=== PATIENT | male | born 1940 | race Caucasian/White ===

== ENCOUNTER 2016-05-23 17:58 | Emergency (ER) | payer MEDICARE ==
[~2016-05-23] VITALS: Ht 170.2 cm; Wt 115.0 kg
[~2016-05-23 17:58] MED LIST: ADVA100A INH; ALBU8I INH; ALLO100T PO; OCUV PO; PROS5TAB2 PO; SYNT25TA PO; WARF2.5T40 PO; WARF5TAB PO
[2016-05-23 18:02] VITALS: BP 139/88; PULSE 84; RESP 16; TEMP 97.6; O2SAT 97
--- NOTE | 2016-05-23 19:40 | PD ---
HPI Chief Complaint: Laceration/Skin Injury Time Seen by Provider: 19:40 Travel History International Travel<30 days: No Contact w/Intl Traveler<30days: No Traveled to known affect area: No History of Present Illness HPI Patient is a 76-year-old male presenting with skin injury to right lower extremity. Approximately 2 hours prior to exam he was cutting bushes when one of the branches tore the skin. He thinks it penetrated superficially. Bleeding was minimal, hemostasis achieved with pressure. 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 He denies any weakness, paresthesia or foreign body sensation. He denies history of CAD, peripheral vascular disease, diabetes and immunocompromised states. Last tetanus vaccine greater than 5 years. 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) Immunizations Current: Yes Sleep Apnea: Yes Thyroid Disease: Yes Tetanus Vaccination: > 5 Years Influenza Vaccination: Yes Past Surgical History Eye Surgery: Yes (RIGHT CATARACT SX) Pacemaker: No Tonsillectomy: Yes Other Surgery: Yes Social History Alcohol Use: Yes ("OCCASIONALLY") Tobacco Use: No Substance Use: No Allergies-Medications (Allergen,Severity, Reaction): Coded Allergies: No Known Allergies (Verified , 05/23/16) Reported Meds & Prescriptions Reported Meds & Active Scripts Active Cephalexin 500 Mg Tab 500 Mg PO Q6H Bactrim DS (Sulfamethoxazole-Trimethoprim) 800-160 Mg Tab 1 Tab PO BID Reported Ventolin Hfa (Albuterol Sulfate) 8 Gm Aero 1 Puff INH ONCE * SHAKE WELL BEFORE USE * Ocuvite 1 Tab1 Tab 1 Tab Tab 1 Tab PO DAILY Allopurinol 100 Mg Tab 100 Mg PO DAILY Warfarin Sodium 5 Mg Tab 5 Mg PO DIRECTED 5 MG Tuesday SAT TUESDAY Warfarin Sodium 2.5 mg (Warfarin Sodium) 2.5 Mg Tab 2.5 Mg PO DIRECTED 2.5 MG Tuesday Synthroid (Levothyroxine Sodium) 25 Mcg Tab 50 Mcg PO DAILY Advair Diskus 100/50 (Salmeterol Xinafoate/Fluticasone) 100 Mcg/50 Mcg Inhp 1 Puff INH BIDPRN PT STATES HE USES VERY RARELY Proscar (Finasteride) 5 Mg Tab 5 Mg PO DAILY Review of Systems General / Constitutional: No: Fever Cardiovascular: Positive: Edema (chronic bilateral lower extremity no acute worsening), No: Chest Pain or Discomfort, Claudication Respiratory: No: Shortness of Breath Musculoskeletal: No: Limited ROM Skin: Positive Other (see the history of present illness) Neurologic: No: Weakness, Focal Abnormalities, Paresthesia, Sensory Disturbance Physical Exam Narrative GENERAL: Well-developed and well-nourished adult male in no acute distress. SKIN: Warm and dry. Good turgor without tenting. HEAD: Normocephalic and atraumatic. NECK: Supple, no midline tenderness, crepitus or step-offs. Trachea midline, no JVD. No cervical or facial lymphadenopathy. CARDIOVASCULAR: Regular rate and rhythm without murmurs, rubs, clicks or gallops. Dorsalis pedis and posterior tibial pulses 2+ bilaterally. Trace bilateral pedal edema, chronic per patient. Negative bilateral Homans sign. RESPIRATORY: Clear to auscultation bilaterally with symmetrical rise and fall, no distress or use of accessory muscles. MUSCULOSKELETAL: There is a 2 x 1 cm skin avulsion to the right medial calf. Severity states that is visible without any deep structures visible. No contaminants or foreign bodies. Hemostasis is achieved. Very minimal surrounding ecchymosis without edema or erythema. No tenderness to palpation. No gait disturbances. Patient freely moving all four extremities spontaneously. Extremities without clubbing, cyanosis, or edema. No obvious deformities. NEUROLOGIC: CN II-XII grossly intact. Awake and alert. Strength 5/5 bilateral plantar flexion and dorsiflexion. Patient can freely move all 5 toes of right foot. Sensation intact to the distal tip of all 5 toes of right foot. Normal speech. PSYCHIATRIC: Appropriate mood and affect; insight and judgment normal. Data Data Last Documented VS Vital Signs Date Time Temp Pulse Resp B/P Pulse Ox O2 Delivery O2 Flow Rate FiO2 05/23/16 18:02 97.6 84 16 139/88 97 Orders Tetanus/Diphtheria Tox Adult (Tetanus/Di (05/23/16 19:45) Lidocai-Epi 1%-1:100,000 Inj (Xylocaine- (05/23/16 19:45) Tibia/Fibula (Ap/Lat) (05/23/16 19:37) Ice/Cold Pack (05/23/16 19:37) Sulfamet-Trimeth Ds 800-160 Mg (Bactrim (05/23/16 21:30) Cephalexin (Keflex) (05/23/16 21:30) MDM Medical Decision Making Medical Screen Exam Complete: Yes Emergency Medical Condition: Yes Differential Diagnosis Skin tear versus laceration versus puncture wound versus wound foreign body Narrative Course Patient is a 68-year-old male on aspirin 325 mg daily presenting with puncture wound and minor skin tear to the right lower extremity. Hemostasis achieved with pressure. He is neurovascularly intact. There is no edema or visible contaminants. Tetanus vaccine is updated. Ordered x-ray which shows no significant tissue defect, foreign body or air. Anesthetized the size cleansed and repaired wound per attached procedure narrative. The wound was only closely approximated as this was more of a skin avulsion. Additionally there were small amount of debris in the wound so this would be preferred to close by secondary intention. Sterile dressing was applied and patient was recommended to change this once daily and follow-up with PCP tomorrow. Will likely need wound care referral.See discharge paperwork for further instructions. The plan was discussed with the patient who acknowledged their understanding and agreement. Reinforced the follow-up with primary care is critically important. Patient instructed on emergent conditions that should prompt return to ED. Procedures Procedure Narrative Skin avulsion LOCATION: Right pretibial surface LENGTH: 2 x 1 cm SHAPE: Ovoid NUMBER OF STITCHES/ALESSANDRO: 3 simple round REPAIR: The area of the laceration was prepped with Betadine and sterilely draped. The laceration was infiltrated with 4 cc of 1% lidocaine with epi. The wound was copiously irrigated and explored revealing that it is shallow. There is no deep structures visible and no evidence of tendon or neurovascular injury. Very minimal leaf-like debris at the very outer edges of the wound which was removed with forceps and irrigated out. Irrigated with 700 cc of sterile saline under light pressure. The wound was closed using loosely approximated with 3-0 Ethilon. This was a single layer repair. A sterile dressing was applied. The patient was advised to keep the dressing clean and dry. Patient tolerated the procedure well. Diagnosis Primary Impression: Avulsion of soft tissue of right lower leg Qualified Code: S81.801A - Avulsion of soft tissue of right lower leg, initial encounter Patient Instructions: General Instructions, Laceration Without Closure (ED) Additional Instructions: Keep bandage on for 24 hours then change twice daily When changing bandage wash area with soap and water Avoid swimming or submerging wound in any water(bath, [place], pool, ocean, etc) Take Tylenol as needed for pain Follow-up with PCP tomorrow, sutures likely will be removed in 10-14 days Return to the ED for any acute worsening of symptoms including swelling, warmth , spreading redness, pustular drainage, fever Med/Other Pt SpecificInfo: Prescription(s) given Scripts Cephalexin 500 Mg [id number] Mg PO Q6H #40 TAB Prov:Anurag Koenig MD 05/23/16 Sulfamethoxazole-Trimethoprim (Bactrim DS)800-160 Mg Tab1 Tab PO BID #20 TAB Prov:Anurag Koenig MD 05/23/16 Disposition: 01 DISCHARGE HOME Condition: Stable Bud Diana III May 23, 2016 19:40
[2016-05-23] MEDS ORDERED: LIDOCAINE 1%/EPINEPHrine 1:100,000 SOLN 20 ML VIAL INFIL ONE (19:45)
[2016-05-23] MEDS ORDERED: TETANUS/DIPHTHERIA TOXOID ADULT 0.5 ML VIAL IM ONE (19:45)
--- NOTE | 2016-05-23 21:27 | RADHPO ---
EXAM DATE/TIME: 05/23/2016 20:15 [facility] COMPARISON: No previous studies available for comparison. INDICATIONS : Right mid-shaft tibia pain / puncture wound from a stick. MEDICAL HISTORY : None. SURGICAL HISTORY : Total knee replacement, right. ENCOUNTER: Initial ACUITY: 1 day PAIN SCORE: 0/10 LOCATION: Right lower leg FINDINGS: Previous right knee replacement noted. No acute fracture or dislocation in the tibia. CONCLUSION: 1. No acute findings. Gordon Francisco MD on May 23, 2016 at 21:24 Board Certified Radiologist. This report was verified electronically.
[2016-05-23] MEDS ORDERED: CEPH500T PO (21:28)
[2016-05-23] MEDS ORDERED: BACT800T5 PO (21:28)
[2016-05-23] MEDS ORDERED: CEPHALEXIN MONOHYDRATE 500 MG CAP PO ONE (21:30)
[2016-05-23] MEDS ORDERED: SULFAMETHOXAZOLE-TRIMETHOPRIM DS 800-160 MG TAB PO ONE (21:30)
== END 2016-05-23 21:53 | disposition home or self-care (01) ==
LOC: PHED 17:58 → PHEFT 21:53
DX: S81.801A Unspecified open wound, right lower leg, initial encounter (principal); J45.909 Unspecified asthma, uncomplicated; E07.9 Disorder of thyroid, unspecified; G47.30 Sleep apnea, unspecified; Z79.82 Long term (current) use of aspirin; Z86.711 Personal history of pulmonary embolism; Z86.718 Personal history of other venous thrombosis and embolism; Z23 Encounter for immunization
CPT/HCPCS: 12001; 73590; 90471; 90714

== ENCOUNTER → 2016-07-28 | Outpatient (CLI) | payer MEDICARE ==
[~2016-07-28] MED LIST changes: +BACT800T5 PO; +CEPH500T PO
[2016-07-28 13:04] LABS: HEMATOCRIT 43.6 % (39.0-51.0); MEAN CELL VOLUME 98.8 FL (80.0-100.0); MEAN CORPUSCULAR HEMOGLOBIN 32.9 PG (27.0-34.0); MEAN CORPUSCULAR HGB CONC 33.3 % (32.0-36.0); PLATELET COUNT 203 TH/MM3 (150-450); RED BLOOD COUNT 4.41 MIL/MM3 (4.50-5.90); REVIEW FLAG FINAL; WHITE BLOOD COUNT 6.5 TH/MM3 (4.0-11.0)
[2016-07-28 13:26] LABS: ALKALINE PHOSPHATASE 53 U/L (45-117); ALT (GPT) 29 U/L (12-78); ANION GAP 8 MEQ/L (5-15); AST (GOT) 22 U/L (15-37); BICARBONATE 29.1 MEQ/L (21.0-32.0); BLOOD UREA NITROGEN 12 MG/DL (7-18); CHLORIDE 106 MEQ/L (98-107); GLOMERULAR FILTRATION RATE 63 ML/MIN (>89); GLUCOSE,FASTING 93 MG/DL (74-99); SODIUM (NA) 143 MEQ/L (136-145); TOTAL BILIRUBIN ADULT 0.7 MG/DL (0.2-1.0)
== END ==
LOC: PLAB 09:25
PROVIDERS: ATTEND Internal Medicine Interventional Cardiology
DX: I48.1 Persistent atrial fibrillation (principal); R42 Dizziness and giddiness; R03.0 Elevated blood-pressure reading, without diagnosis of hypertension; R53.83 Other fatigue; R06.02 Shortness of breath
CPT/HCPCS: 36415; 80053; 84443; 85027

== ENCOUNTER → 2016-08-16 | Outpatient (CLI) | payer MEDICARE ==
[2016-08-16 13:39] LABS: ALKALINE PHOSPHATASE 53 U/L (45-117); ALT (GPT) 29 U/L (12-78); ANION GAP 7 MEQ/L (5-15); AST (GOT) 20 U/L (15-37); BICARBONATE 29.9 MEQ/L (21.0-32.0); BLOOD UREA NITROGEN 12 MG/DL (7-18); CHLORIDE 106 MEQ/L (98-107); FREE T4 1.02 NG/DL (0.76-1.46); GLOMERULAR FILTRATION RATE 63 ML/MIN (>89); GLUCOSE,FASTING 85 MG/DL (74-99); HDL CHOLESTEROL 40.6 MG/DL (40.0-60.0); LDL CHOLESTEROL 129 MG/DL (0-99); POTASSIUM 4.1 MEQ/L (3.5-5.1); SODIUM (NA) 143 MEQ/L (136-145); TOTAL BILIRUBIN ADULT 0.7 MG/DL (0.2-1.0); URIC ACID 6.2 MG/DL (2.6-7.2)
== END ==
LOC: PLAB 10:49
PROVIDERS: ATTEND Internal Medicine Interventional Cardiology
DX: E78.00 Pure hypercholesterolemia, unspecified (principal); E78.2 Mixed hyperlipidemia; M10.9 Gout, unspecified; E03.9 Hypothyroidism, unspecified
CPT/HCPCS: 36415; 80053; 80061; 84439; 84443; 84550

== ENCOUNTER → 2016-08-20 | Outpatient (CLI) | payer MEDICARE ==
[2016-08-20 11:49] LABS: HEMATOCRIT 44.2 % (39.0-51.0); MEAN CELL VOLUME 98.7 FL (80.0-100.0); MEAN CORPUSCULAR HEMOGLOBIN 33.6 PG (27.0-34.0); MEAN CORPUSCULAR HGB CONC 34.1 % (32.0-36.0); PLATELET COUNT 213 TH/MM3 (150-450); RED BLOOD COUNT 4.48 MIL/MM3 (4.50-5.90); RED CELL DISTRIBUTION WIDTH 14.8 % (11.6-17.2); REVIEW FLAG FINAL; WHITE BLOOD COUNT 5.8 TH/MM3 (4.0-11.0)
== END ==
LOC: CLAB 11:32
PROVIDERS: ATTEND Family Medicine
DX: R10.13 Epigastric pain (principal)
CPT/HCPCS: 36415; 85027

== ENCOUNTER → 2017-01-11 | Outpatient (CLI) | payer MEDICARE ==
[2017-01-11 12:49] LABS: MEAN CELL VOLUME 99.6 FL (80.0-100.0); MEAN CORPUSCULAR HEMOGLOBIN 33.2 PG (27.0-34.0); MEAN CORPUSCULAR HGB CONC 33.3 % (32.0-36.0); PLATELET COUNT 192 TH/MM3 (150-450); RED BLOOD COUNT 4.41 MIL/MM3 (4.50-5.90); RED CELL DISTRIBUTION WIDTH 15.7 % (11.6-17.2); REVIEW FLAG FINAL; WHITE BLOOD COUNT 4.6 TH/MM3 (4.0-11.0)
[2017-01-11 13:13] LABS: ANION GAP 7 MEQ/L (5-15); AST (GOT) 22 U/L (15-37); BICARBONATE 27.8 MEQ/L (21.0-32.0); BLOOD UREA NITROGEN 13 MG/DL (7-18); CHLORIDE 106 MEQ/L (98-107); GLOMERULAR FILTRATION RATE 77 ML/MIN (>89); GLUCOSE,FASTING 87 MG/DL (74-99); POTASSIUM 3.9 MEQ/L (3.5-5.1); SODIUM (NA) 141 MEQ/L (136-145)
[2017-01-11 13:14] LABS: ALT (GPT) 32 U/L (12-78)
[2017-01-11 13:16] LABS: ALKALINE PHOSPHATASE 57 U/L (45-117); TOTAL BILIRUBIN ADULT 0.4 MG/DL (0.2-1.0)
== END ==
LOC: CLAB 12:22
PROVIDERS: ATTEND Family Medicine
DX: R10.9 Unspecified abdominal pain (principal)
CPT/HCPCS: 36415; 80053; 83690; 85027